=== PATIENT | female | born 1980 ===

== ENCOUNTER → 2017-04-08 | Emergency (ER) | payer OTHER ==
[~2017-04-08] VITALS: Ht 152.4 cm; Wt 45.4 kg
[~2017-04-08] MED LIST: AMBIEN10 MG PO; CLONAZEPAM2 MG; CLONAZEPAM2 MG PO; DEPAKOTE ER500 MG PO; IBUPROFEN800 MG PO; INTESTINEX1 CAP PO; KETO10TA2 PO; ORPH100T PO; PROTONIX40 MG PO; WELLBUTRIN XL300 MG
== END | disposition home or self-care (01) ==
LOC: ER 13:45
DX: B34.9 Viral infection, unspecified (principal); J11.1 Influenza due to unidentified influenza virus with other respiratory manifestations